=== PATIENT | female | born 1980 | race Caucasian/White ===

== ENCOUNTER 2018-03-22 14:04 | Emergency (ER) | END 2018-03-22 20:30 | disposition home or self-care (01) ==

== ENCOUNTER 2018-11-02 17:18 | Emergency (ER) | payer OTHER ==
[~2018-11-02] VITALS: Ht 157.5 cm; Wt 57.9 kg
[~2018-11-02 17:18] MED LIST: AMOX250C PO; ESCI20TA PO; GABA300C16 PO; HYDR-762 PO; HYDR-845 PO; METH-417 PO; ONDA4TAB13 PO; PRAZ2CAP2 PO
[2018-11-02 17:22] VITALS: Ht 157.5 cm; Wt 57.9 kg
[2018-11-02] MEDS ORDERED: ACETAMINOPHEN 325 MG TAB PO ONE (20:00)
[2018-11-02] MEDS ORDERED: LIDOCAINE 1% (MDV) 20 ML INJ SC ONE (21:00)
[2018-11-02] MEDS ORDERED: CEFTRIAXONE 1 GM INJ IM ONE (21:00)
[2018-11-02] MEDS ORDERED: CEPH-443 PO (21:13)
[2018-11-02] MEDS ORDERED: IBUP-1542 PO (21:13)
--- NOTE | 2018-11-02 21:16 | ERD ---
ER Documentation Chief Complaint Chief Complaint DYSURIA [id number] HPI This 38-year-old female presents with dysuria for the last 2 weeks. She may have had chills but no measured fever. She denies vomiting, flank pain, abdominal pain. She denies concern for STDs. ROS All systems reviewed and are negative except as per history of present illness. Medications Home Meds Active Scripts Hydrocodone/Acetaminophen (Kamrar 5-325 Tablet) 1 Each Tablet, 1 TAB PO Q6H PRN for PAIN, #5 TAB Prov:FERMIN MATHIS MD 11/02/18 Ibuprofen* (Motrin*) 600 Mg Tab, 600 MG PO Q6, #14 TAB Prov:FERMIN MATHIS MD 11/02/18 Cephalexin* (Keflex*) 500 Mg Capsule, 500 MG PO QID for 7 Days, CAP Prov:FERMIN MATHIS MD 11/02/18 Ondansetron Hcl* (Zofran*) 4 Mg Tab, 4 MG PO Q6H PRN for NAUSEA AND OR VOMITING, #20 TAB Prov:MELI IBARRA NP 09/02/16 Amoxicillin* (Amoxil*) 250 Mg Capsule, 250 MG PO Q8 for 4 Days, CAP Prov:MELI IBARRA NP 09/02/16 Reported Medications Prazosin Hcl* (Prazosin Hcl*) 2 Mg Capsule, 2 MG PO HS, CAP 08/31/16 Gabapentin* (Gabapentin*) 300 Mg Capsule, 300 MG PO BID, #60 CAP 08/31/16 Hydroxyzine Hcl* (Atarax*) 50 Mg Tab, 50 MG PO QHS PRN for ITCHING, TAB 08/31/16 Hydrocodone Bit-Acetaminophen* (Kamrar*) 10-325 Mg Tablet, 1 TAB PO Q6 PRN for PAIN, TAB 04/02/15 Escitalopram Oxalate* (Lexapro*) 20 Mg Tablet, 20 MG PO DAILY, TAB 04/02/15 Methadone Hcl* (Methadone*) 5 Mg Tab, 75 MG PO DAILY, TAB 04/02/15 Allergies Allergies: Coded Allergies: lamotrigine (Verified Allergy, Intermediate, CYSTS/BOILS ALL OVER FACE, 08/31/16) morphine (Verified Adverse Reaction, Mild, itching, 08/31/16) SOMETIMES RASH DEVELOPS, SOMETIMES NO REACTION PER PT PMhx/Soc History of Surgery: No Anesthesia Reaction: No Hx Neurological Disorder: No Hx Respiratory Disorders: No Hx Cardiac Disorders: No Hx Psychiatric Problems: Yes (DEPRESSION) Hx Miscellaneous Medical Probl: Yes (previous drug abuse) Hx Alcohol Use: No Hx Substance Use: Yes (previous user, 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 Neck: Full range of motion. No meningismus. Resp: Clear to auscultation bilaterally Cardio: Regular rate and rhythm, no murmurs Abd: Soft, non tender, non distended. Normal bowel sounds Skin: No petechiae or rashes Back: No midline or flank tenderness Ext: No cyanosis, or edema Neur: Awake and alert Psych: Normal Mood and Affect Results 24 hrs Laboratory Tests Test 11/02/18 20:10 11/02/18 20:17 POC Beta HCG, Qualitative NEGATIVE Urine Color CHARLEE Urine Clarity SLIGHTLY CLOUDY Urine pH 5.0 Urine Specific [place] 1.019 Urine Ketones NEGATIVE mg/dL Urine Nitrite POSITIVE mg/dL Urine Bilirubin NEGATIVE mg/dL Urine Urobilinogen 2+ mg/dL Urine Leukocyte Esterase 2+ Luis Alfredo/ul Urine Microscopic RBC 52 /HPF Urine Microscopic WBC > 182 /HPF Urine Squamous Epithelial Cells FEW /HPF Urine Calcium Oxalate Crystals MANY /HPF Urine Mucus MODERATE /HPF Urine Hemoglobin 1+ mg/dL Urine Glucose NEGATIVE mg/dL Urine Total Protein 1+ mg/dl Current Medications Medications Dose Sig/Stefanie Start Time Status Last (Trade) Ordered Route PRN Stop Time Admin Dose Reason Admin 650 mg ONCE ONCE 11/02/18 DC 11/02/18 Acetaminophen PO 20:00 20:11 (Tylenol 11/02/18 20:01 Tab) Ceftriaxone 1 gm ONCE ONCE 11/02/18 DC 11/02/18 Sodium IM 21:00 21:15 (Rocephin) 11/02/18 21:05 Lidocaine 20 ml ONCE ONCE 11/02/18 DC (Xylocaine SC 21:00 1% (Mdv) 20 11/02/18 21:05 ml) 1 tab ONCE ONCE 11/02/18 Acetaminophen PO 21:30 / 11/02/18 21:31 Hydrocodone Bitart (Kamrar (5/325)) Procedures/MDM Urine shows white blood cells, nitrates, leukocyte esterase. Patient does not have SIRS criteria. Patient has no signs of significant abdominal pain or flank pain. Given possible chills and duration of symptoms she is given Rocephin 1 g IM and will be treated with Keflex, instructions for fluids, primary care fo llow-up and return precautions for fevers, vomiting, abdominal pain, new or worsening symptoms. Patient by request for pain will be given 5 Kamrar. Cures review shows 1 previous prescription for 5 Kamrar in the last 1 year. Departure Diagnosis: Primary Impression: UTI (urinary tract infection) Urinary tract infection type: acute cystitis Hematuria presence: without hematuria Qualified Codes: N30.00 - Acute cystitis without hematuria Additional Impression: Dysuria Condition: Stable Patient Instructions: Understanding Urinary Tract Infections (UTIs) Additional Instructions: Urine shows infection. Clear fluids at home. Recheck for fevers, vomiting, worsening pain, new or worsening symptoms. FERMIN MATHIS MD Nov 02, 2018 21:16
[2018-11-02] MEDS ORDERED: HYDR-4011 PO (21:28)
[2018-11-02] MEDS ORDERED: HYDROCODONE/APAP (5/325) TAB PO ONE (21:30)
[2018-11-02 21:39] VITALS: BP 100/56; PULSE 68; RESP 16
== END 2018-11-02 21:43 | disposition home or self-care (01) ==
LOC: FTE 17:18
DX: N30.00 Acute cystitis without hematuria (principal); F17.210 Nicotine dependence, cigarettes, uncomplicated
CPT/HCPCS: 81001; 81025; 96372; J0696; Z7502; Z7610